=== PATIENT | female | born 1945 | race Caucasian/White ===

== ENCOUNTER 2019-03-07 20:53 | Inpatient (IN) | payer MEDICARE, OTHER ==
[2019-03-07 21:23] LABS: ADD MAN DIFF? NO
[2019-03-07] MEDS: ALBUTEROL 0.5% (NEB) 2.5 MG/0.5 ML AMP INH (21:25)
[2019-03-07] MEDS: IPRATROPIUM (NEB) 0.5 MG/2.5 ML AMP INH (21:25)
[2019-03-07 21:28] LABS: WHITE BLOOD COUNT 9.9 10^3/ul (4.8-10.8)
[2019-03-07 21:28] LABS: BASOPHIL # 0.1 10^3/ul (0.0-0.1); BASOPHILS % 0.6 % (0.0-2.0); EOSINOPHILS # 0.1 10^3/ul (0.0-0.5); EOSINOPHILS % 0.5 % (0.0-7.0); HEMATOCRIT 36.6 % (37.0-47.0); HEMOGLOBIN 11.1 g/dl (12.0-16.0); LYMPHOCYTES # 0.9 10^3/ul (0.8-2.9); LYMPHOCYTES % 9.1 % (15.0-51.0); MEAN CORPUSCULAR HEMOGLOBIN 24.6 pg (29.0-33.0); MEAN CORPUSCULAR HGB CONC 30.3 g/dl (32.0-37.0); MEAN CORPUSCULAR VOLUME 81.2 fl (82.0-101.0); MEAN PLATELET VOLUME 10.2 fl (7.4-10.4); MONOCYTE # 0.6 10^3/ul (0.3-0.9); MONOCYTES % 5.9 % (0.0-11.0); NEUTROPHIL # 8.2 10^3/ul (1.6-7.5); NEUTROPHILS % 83.4 % (39.0-77.0); PLATELET COUNT 119 10^3/UL (140-415); RED BLOOD COUNT 4.51 10^6/ul (4.20-5.40); RED CELL DISTRIBUTION WIDTH 17.6 % (11.5-14.5)
[2019-03-07] MEDS: CEFEPIME 2GM/50 ML (PMX) 50 ML IVPB (21:31)
[2019-03-07] MEDS: ACETAMINOPHEN 325 MG TAB PO (21:31)
[2019-03-07 21:47] LABS: INR 1.08; PROTIME 14.1 Sec (11.9-14.9); PT RATIO 1.1
[2019-03-07 21:48] LABS: PARTIAL THROMBOPLASTIN TIME 26.5 Sec (23.0-35.0)
[2019-03-07 21:59] LABS: LACTIC ACID 2.6 mmol/L (0.5-2.0)
[2019-03-07 22:08] LABS: ALANINE AMINOTRANSFERASE 18 IU/L (13-69); ALBUMIN 3.4 g/dl (3.3-4.9); ALBUMIN/GLOBULIN RATIO 1.36; ALKALINE PHOSPHATASE 100 IU/L (42-121); ANION GAP 9 (5-13); ASPARTATE AMINO TRANSFERASE 25 IU/L (15-46); BILIRUBIN,INDIRECT 0.8 mg/dl (0-1.1); BILIRUBIN,TOTAL 0.8 mg/dl (0.2-1.3); BLOOD UREA NITROGEN 39 mg/dl (7-20); CALCIUM 8.1 mg/dl (8.4-10.2); CARBON DIOXIDE 24 mmol/L (21-31); CHLORIDE 103 mmol/L (97-110); CREATININE 1.05 mg/dl (0.44-1.00); GLUCOSE 114 mg/dl (70-220); POTASSIUM 4.9 mmol/L (3.5-5.1); SODIUM 136 mmol/L (135-144); TOTAL PROTEIN 5.9 g/dl (6.1-8.1)
[2019-03-07 22:20] LABS: B-TYPE NATRIURETIC PEPTIDE 1790 PG/ML (0-450); TROPONIN-I < 0.012 ng/ml (0.000-0.120)
[2019-03-07] MEDS: VANCOMYCIN 1 GM (PMX) 250 ML IVPB (22:36)
[2019-03-07] MEDS ORDERED: ONDANSETRON 4 MG INJ IV (23:00)
[2019-03-07] MEDS ORDERED: ACETAMINOPHEN 325 MG TAB PO (23:00)
[2019-03-07] MEDS: SOD CHLORIDE 0.9% 1,000 ML IV (23:10)
[2019-03-07] MEDS ORDERED: NITROGLYCERIN (SL) 0.4 MG TAB SL (23:30)
[2019-03-07] MEDS ORDERED: DOCUSATE SODIUM 100 MG CAP PO (23:30)
[2019-03-07] MEDS ORDERED: VANCOMYCIN IV PER PHARMACY XX (23:30)
[2019-03-07] MEDS ORDERED: BISACODYL (EC) 5 MG TAB PO (23:30)
[2019-03-07] MEDS ORDERED: NACL 0.9% 3 ML SYG IV (23:30)
[2019-03-07 23:52] LABS: LACTIC ACID 1.9 mmol/L (0.5-2.0)
[2019-03-08] MEDS: FUROSEMIDE 40 MG INJ IV (00:23)
[2019-03-08] MEDS: HYDROCODONE/APAP (5/325) TAB PO (00:24)
[2019-03-08] MEDS: HEPARIN 5,000 UNIT/1 ML VIAL SC ×4 (01:24→23:55)
[2019-03-08] MEDS: PIPER-TAZO 3.375 GM IV (PMX) 100 ML IVPB ×4 (01:25→18:56)
[2019-03-08 02:04] LABS: LACTIC ACID 1.9 mmol/L (0.5-2.0)
[2019-03-08] MEDS: BUMETANIDE 1 MG INJ IM (05:36)
[2019-03-08 06:43] LABS: ADD MAN DIFF? NO
[2019-03-08 06:44] LABS: WHITE BLOOD COUNT 8.2 10^3/ul (4.8-10.8)
[2019-03-08 06:44] LABS: ABNORMAL IP MESSAGE 1; BASOPHIL # 0.1 10^3/ul (0.0-0.1); BASOPHILS % 0.6 % (0.0-2.0); EOSINOPHILS % 0.4 % (0.0-7.0); HEMATOCRIT 33.1 % (37.0-47.0); HEMOGLOBIN 10.2 g/dl (12.0-16.0); LYMPHOCYTES # 0.6 10^3/ul (0.8-2.9); MEAN CORPUSCULAR HEMOGLOBIN 24.9 pg (29.0-33.0); MEAN CORPUSCULAR HGB CONC 30.8 g/dl (32.0-37.0); MEAN CORPUSCULAR VOLUME 80.9 fl (82.0-101.0); MEAN PLATELET VOLUME 10.6 fl (7.4-10.4); MONOCYTE # 0.4 10^3/ul (0.3-0.9); MONOCYTES % 4.5 % (0.0-11.0); NEUTROPHIL # 7.1 10^3/ul (1.6-7.5); NEUTROPHILS % 86.7 % (39.0-77.0); PLATELET COUNT 107 10^3/UL (140-415); RED BLOOD COUNT 4.09 10^6/ul (4.20-5.40); RED CELL DISTRIBUTION WIDTH 17.6 % (11.5-14.5)
[2019-03-08 06:45] LABS: POSITIVE DIFF @See below
[2019-03-08 07:18] LABS: ALANINE AMINOTRANSFERASE 19 IU/L (13-69); ALBUMIN 2.9 g/dl (3.3-4.9); ALBUMIN/GLOBULIN RATIO 1.31; ALKALINE PHOSPHATASE 78 IU/L (42-121); ANION GAP 6 (5-13); ASPARTATE AMINO TRANSFERASE 24 IU/L (15-46); BILIRUBIN,INDIRECT 0.7 mg/dl (0-1.1); BILIRUBIN,TOTAL 0.7 mg/dl (0.2-1.3); BLOOD UREA NITROGEN 37 mg/dl (7-20); CALCIUM 7.7 mg/dl (8.4-10.2); CARBON DIOXIDE 23 mmol/L (21-31); CHLORIDE 107 mmol/L (97-110); CREATININE 0.95 mg/dl (0.44-1.00); GLUCOSE 110 mg/dl (70-220); MAGNESIUM 2.1 mg/dl (1.7-2.5); POTASSIUM 4.7 mmol/L (3.5-5.1); SODIUM 136 mmol/L (135-144); TOTAL PROTEIN 5.1 g/dl (6.1-8.1)
[2019-03-08 07:20] LABS: HEMOGLOBIN A1C 5.5 % (0-5.9)
[2019-03-08] MEDS: ALLOPURINOL 300 MG TAB PO (08:57)
[2019-03-08 10:48] LABS: FOLATE 10.3 ng/ml (2.8-20.0)
[2019-03-08] MEDS: LIDOCAINE 1% (MPF) 5 ML VIAL ×2 (12:28→13:11)
[2019-03-08] MEDS: BUMETANIDE 1 MG INJ IV ×2 (13:39→18:56)
[2019-03-08 17:39] LABS: ADD UMIC NO; UR ASCORBIC ACID NEGATIVE (NEGATIVE); UR BILIRUBIN (Dip) NEGATIVE (NEGATIVE); UR BLOOD (Dip) NEGATIVE (NEGATIVE); UR CLARITY SLIGHTLY CLOUDY (CLEAR); UR COLOR YELLOW (YELLOW); UR GLUCOSE (Dip) NEGATIVE (NEGATIVE); UR KETONES (Dip) NEGATIVE (NEGATIVE); UR LEUKOCYTE ESTERASE (Dip) NEGATIVE Leu/ul (NEGATIVE); UR NITRITE (Dip) NEGATIVE (NEGATIVE); UR RBC 0 /HPF (0-5); UR SPECIFIC GRAVITY (Dip) 1.011 (1.003-1.030); UR TOTAL PROTEIN (Dip) NEGATIVE (NEGATIVE); UR UROBILINOGEN (Dip) NEGATIVE (NEGATIVE); UR WBC 5 /HPF (0-5)
[2019-03-08 18:21] LABS: FLD PMN% 41.1 %; FLD RBC 8000 /uL
[2019-03-08 18:26] LABS: FLD PMN% 14.9 %; FLD RBC 12000 /uL
[2019-03-08 18:39] LABS: TRIGLYCERIDES 53 mg/dl (0-149)
[2019-03-08 18:39] LABS: ALBUMIN 2.1 g/dl (3.3-4.9)
[2019-03-08 18:42] LABS: FLUID GLUCOSE < 20 mg/dl; FLUID TYPE THORACENTESIS FLUID
[2019-03-08 18:43] LABS: FLD CLARITY TURBID; FLD COLOR YELLOW; FLD WBC 27687 /cmm
[2019-03-08 18:43] LABS: FLD TYPE THORACENTHESIS
[2019-03-08 18:45] LABS: FLD MN% 58.9 %
[2019-03-08 18:45] LABS: ALBUMIN 1.9 g/dl (3.3-4.9)
[2019-03-08 18:46] LABS: FLD CLARITY TURBID; FLD COLOR YELLOW; FLD WBC 42475 /cmm
[2019-03-08 18:46] LABS: FLD TYPE PARACENTHESIS
[2019-03-08 18:48] LABS: FLD MN% 85.1 %
[2019-03-08 18:50] LABS: FLUID GLUCOSE < 20 mg/dl; FLUID TYPE PARACENTESIS FLUID
[2019-03-08 18:51] LABS: FLUID TOTAL PROTEIN 3.3 g/dl; FLUID TOTAL PROTEIN 3.7 g/dl; FLUID TYPE PARACENTESIS FLUID
[2019-03-08 18:52] LABS: FLUID LD 3701 U/L
[2019-03-08 19:01] LABS: FLUID LD 6175 U/L
[2019-03-08] MEDS: VANCOMYCIN 1 GM 250 ML IVPB (22:42)
[2019-03-09] MEDS: PIPER-TAZO 3.375 GM IV (PMX) 100 ML IVPB ×4 (00:33→17:53)
[2019-03-09 06:10] LABS: ADD MAN DIFF? NO
[2019-03-09 06:22] LABS: ABNORMAL IP MESSAGE 1; BASOPHILS % 0.4 % (0.0-2.0); EOSINOPHILS # 0.1 10^3/ul (0.0-0.5); EOSINOPHILS % 0.6 % (0.0-7.0); HEMATOCRIT 31.9 % (37.0-47.0); HEMOGLOBIN 9.7 g/dl (12.0-16.0); LYMPHOCYTES # 0.7 10^3/ul (0.8-2.9); LYMPHOCYTES % 8.9 % (15.0-51.0); MEAN CORPUSCULAR HEMOGLOBIN 24.6 pg (29.0-33.0); MEAN CORPUSCULAR HGB CONC 30.4 g/dl (32.0-37.0); MEAN CORPUSCULAR VOLUME 80.8 fl (82.0-101.0); MEAN PLATELET VOLUME 11.4 fl (7.4-10.4); MONOCYTE # 0.4 10^3/ul (0.3-0.9); MONOCYTES % 4.9 % (0.0-11.0); NEUTROPHIL # 6.8 10^3/ul (1.6-7.5); NEUTROPHILS % 84.6 % (39.0-77.0); PLATELET COUNT 96 10^3/UL (140-415); RED BLOOD COUNT 3.95 10^6/ul (4.20-5.40); RED CELL DISTRIBUTION WIDTH 17.7 % (11.5-14.5)
[2019-03-09 06:27] LABS: POSITIVE DIFF @See below
[2019-03-09] MEDS: HEPARIN 5,000 UNIT/1 ML VIAL SC ×3 (06:28→23:26)
[2019-03-09 06:51] LABS: ALANINE AMINOTRANSFERASE 19 IU/L (13-69); ALBUMIN 2.5 g/dl (3.3-4.9); ALBUMIN/GLOBULIN RATIO 1.13; ALKALINE PHOSPHATASE 71 IU/L (42-121); ANION GAP 6 (5-13); ASPARTATE AMINO TRANSFERASE 24 IU/L (15-46); BILIRUBIN,INDIRECT 0.7 mg/dl (0-1.1); BILIRUBIN,TOTAL 0.7 mg/dl (0.2-1.3); BLOOD UREA NITROGEN 33 mg/dl (7-20); CARBON DIOXIDE 23 mmol/L (21-31); CHLORIDE 109 mmol/L (97-110); CREATININE 1.03 mg/dl (0.44-1.00); GLUCOSE 100 mg/dl (70-220); POTASSIUM 3.9 mmol/L (3.5-5.1); SODIUM 138 mmol/L (135-144); TOTAL PROTEIN 4.7 g/dl (6.1-8.1)
[2019-03-09] MEDS: ALLOPURINOL 300 MG TAB PO (09:05)
[2019-03-09] MEDS: CYANOCOBALAMIN 1000 MCG INJ IM (12:44)
[2019-03-09] MEDS: VANCOMYCIN 1 GM 250 ML IVPB (23:14)
[2019-03-10] MEDS: PIPER-TAZO 3.375 GM IV (PMX) 100 ML IVPB ×4 (02:03→17:57)
[2019-03-10 06:53] LABS: ABNORMAL IP MESSAGE 1; ADD MAN DIFF? NO; BASOPHILS % 0.3 % (0.0-2.0); EOSINOPHILS # 0.1 10^3/ul (0.0-0.5); EOSINOPHILS % 1.3 % (0.0-7.0); HEMATOCRIT 33.9 % (37.0-47.0); HEMOGLOBIN 10.3 g/dl (12.0-16.0); LYMPHOCYTES % 12.9 % (15.0-51.0); MEAN CORPUSCULAR HEMOGLOBIN 24.4 pg (29.0-33.0); MEAN CORPUSCULAR HGB CONC 30.4 g/dl (32.0-37.0); MEAN CORPUSCULAR VOLUME 80.3 fl (82.0-101.0); MONOCYTE # 0.4 10^3/ul (0.3-0.9); MONOCYTES % 4.8 % (0.0-11.0); PLATELET COUNT 96 10^3/UL (140-415); RED BLOOD COUNT 4.22 10^6/ul (4.20-5.40); RED CELL DISTRIBUTION WIDTH 18.2 % (11.5-14.5)
[2019-03-10 06:53] LABS: WHITE BLOOD COUNT 7.5 10^3/ul (4.8-10.8)
[2019-03-10 06:54] LABS: POSITIVE DIFF @See below
[2019-03-10] MEDS: HEPARIN 5,000 UNIT/1 ML VIAL SC ×2 (06:55→21:35)
[2019-03-10 07:21] LABS: ALANINE AMINOTRANSFERASE 20 IU/L (13-69); ALBUMIN 2.7 g/dl (3.3-4.9); ALBUMIN/GLOBULIN RATIO 1.28; ALKALINE PHOSPHATASE 77 IU/L (42-121); ANION GAP 6 (5-13); ASPARTATE AMINO TRANSFERASE 26 IU/L (15-46); BILIRUBIN,INDIRECT 0.7 mg/dl (0-1.1); BILIRUBIN,TOTAL 0.7 mg/dl (0.2-1.3); BLOOD UREA NITROGEN 31 mg/dl (7-20); CALCIUM 7.4 mg/dl (8.4-10.2); CARBON DIOXIDE 23 mmol/L (21-31); CHLORIDE 108 mmol/L (97-110); CREATININE 1.06 mg/dl (0.44-1.00); GLUCOSE 102 mg/dl (70-220); POTASSIUM 3.8 mmol/L (3.5-5.1); SODIUM 137 mmol/L (135-144); TOTAL PROTEIN 4.8 g/dl (6.1-8.1)
[2019-03-10] MEDS: ALLOPURINOL 300 MG TAB PO (08:32)
[2019-03-10] MEDS: CYANOCOBALAMIN 1000 MCG INJ IM (08:32)
[2019-03-10 10:18] LABS: IRON 34 ug/dl (35-150)
[2019-03-10 10:28] LABS: % IRON SATURATION 15 % SAT (22-52); TOTAL IRON BINDING CAPACITY 221 ug/dl (241-421)
[2019-03-10] MEDS: FUROSEMIDE 40 MG TAB PO (12:01)
[2019-03-10] MEDS: SPIRONOLACTONE 50 MG TAB PO (12:02)
[2019-03-10] MEDS: ACETAMINOPHEN 325 MG TAB PO (20:45)
[2019-03-11] MEDS: PIPER-TAZO 3.375 GM IV (PMX) 100 ML IVPB ×2 (00:39→05:21)
[2019-03-11 08:57] LABS: ADD MAN DIFF? NO
[2019-03-11] MEDS: SPIRONOLACTONE 50 MG TAB PO (09:05)
[2019-03-11 09:06] LABS: WHITE BLOOD COUNT 7.7 10^3/ul (4.8-10.8)
[2019-03-11 09:06] LABS: BASOPHILS % 0.5 % (0.0-2.0); EOSINOPHILS # 0.1 10^3/ul (0.0-0.5); EOSINOPHILS % 1.4 % (0.0-7.0); HEMATOCRIT 35.4 % (37.0-47.0); HEMOGLOBIN 10.7 g/dl (12.0-16.0); LYMPHOCYTES # 0.9 10^3/ul (0.8-2.9); LYMPHOCYTES % 11.1 % (15.0-51.0); MEAN CORPUSCULAR HEMOGLOBIN 24.7 pg (29.0-33.0); MEAN CORPUSCULAR HGB CONC 30.2 g/dl (32.0-37.0); MEAN CORPUSCULAR VOLUME 81.6 fl (82.0-101.0); MEAN PLATELET VOLUME 11.1 fl (7.4-10.4); MONOCYTE # 0.3 10^3/ul (0.3-0.9); MONOCYTES % 4.1 % (0.0-11.0); NEUTROPHIL # 6.4 10^3/ul (1.6-7.5); NEUTROPHILS % 82.4 % (39.0-77.0); PLATELET COUNT 111 10^3/UL (140-415); RED BLOOD COUNT 4.34 10^6/ul (4.20-5.40)
[2019-03-11] MEDS: ALLOPURINOL 300 MG TAB PO (09:06)
[2019-03-11] MEDS: FUROSEMIDE 40 MG TAB PO (09:06)
[2019-03-11] MEDS: CYANOCOBALAMIN 1000 MCG INJ IM (09:06)
[2019-03-11] MEDS: HEPARIN 5,000 UNIT/1 ML VIAL SC ×2 (09:09→20:51)
[2019-03-11] MEDS: ACETAMINOPHEN 325 MG TAB PO (09:10)
[2019-03-11 09:26] LABS: ALANINE AMINOTRANSFERASE 21 IU/L (13-69); ALBUMIN 2.7 g/dl (3.3-4.9); ALBUMIN/GLOBULIN RATIO 1.17; ALKALINE PHOSPHATASE 83 IU/L (42-121); ANION GAP 8 (5-13); ASPARTATE AMINO TRANSFERASE 28 IU/L (15-46); BILIRUBIN,INDIRECT 0.7 mg/dl (0-1.1); BILIRUBIN,TOTAL 0.7 mg/dl (0.2-1.3); BLOOD UREA NITROGEN 31 mg/dl (7-20); CALCIUM 7.5 mg/dl (8.4-10.2); CARBON DIOXIDE 26 mmol/L (21-31); CHLORIDE 104 mmol/L (97-110); CREATININE 1.09 mg/dl (0.44-1.00); GLUCOSE 110 mg/dl (70-220); POTASSIUM 4.2 mmol/L (3.5-5.1); SODIUM 138 mmol/L (135-144)
[2019-03-11] MEDS: FERROUS SULFATE (EC) 325 MG TAB PO (13:29)
[2019-03-11] MEDS: HYDROCODONE/APAP (5/325) TAB PO (17:41)
[2019-03-11] MEDS: ONDANSETRON 4 MG INJ IV (17:41)
[2019-03-12 06:54] LABS: WHITE BLOOD COUNT 7.8 10^3/ul (4.8-10.8)
[2019-03-12 06:54] LABS: HEMATOCRIT 34.2 % (37.0-47.0); HEMOGLOBIN 10.3 g/dl (12.0-16.0); MEAN CORPUSCULAR HEMOGLOBIN 24.7 pg (29.0-33.0); MEAN CORPUSCULAR HGB CONC 30.1 g/dl (32.0-37.0); MEAN PLATELET VOLUME 11.4 fl (7.4-10.4); PLATELET COUNT 114 10^3/UL (140-415); RED BLOOD COUNT 4.17 10^6/ul (4.20-5.40); RED CELL DISTRIBUTION WIDTH 18.3 % (11.5-14.5)
[2019-03-12 07:01] LABS: ADD MAN DIFF? YES; POSITIVE DIFF @See below
[2019-03-12 07:20] LABS: ANION GAP 9 (5-13); BLOOD UREA NITROGEN 33 mg/dl (7-20); CALCIUM 7.9 mg/dl (8.4-10.2); CARBON DIOXIDE 24 mmol/L (21-31); CHLORIDE 105 mmol/L (97-110); CREATININE 1.31 mg/dl (0.44-1.00); GLUCOSE 90 mg/dl (70-220); MAGNESIUM 1.8 mg/dl (1.7-2.5); POTASSIUM 4.1 mmol/L (3.5-5.1); SODIUM 138 mmol/L (135-144)
[2019-03-12 07:34] LABS: LACTATE DEHYDROGENASE 2808 IU/L (313-618)
[2019-03-12 08:06] LABS: ERYTHROCYTE SEDIMENTATION RATE 6 mm/Hr (0-30)
[2019-03-12 08:26] LABS: ANISOCYTOSIS 2+ (0-0); BAND NEUTROPHILS #M 0.1 10^3/ul (0.0-0.6); BAND NEUTROPHILS % (M) 2 % (0-4); BASOPHILS % (M) 1 % (0-2); EOSINOPHILS % (M) 1 % (0-7); GIANT THROMBO% (M) 3 % (0-0); LYMPHOCYTES #M 0.3 10^3/ul (0.8-2.9); LYMPHOCYTES % (M) 5 % (15-51); MICROCYTOSIS 2+ (0-0); MONOCYTE #M 0.3 10^3/ul (0.3-0.9); MONOCYTES % (M) 4 % (0-11); PLATELET ESTIMATE DECREASED; SEG NEUT #M 6.8 10^3/ul (1.6-7.5); SEGMENTED NEUTROPHILS (M) % 87 % (39-77); SMUDGE%M 8 % (0-0)
[2019-03-12] MEDS: FUROSEMIDE 40 MG TAB PO (09:00)
[2019-03-12] MEDS: SPIRONOLACTONE 50 MG TAB PO (09:48)
[2019-03-12] MEDS: FERROUS SULFATE (EC) 325 MG TAB PO (09:48)
[2019-03-12] MEDS: ALLOPURINOL 300 MG TAB PO (09:48)
[2019-03-12] MEDS: CYANOCOBALAMIN 1000 MCG INJ IM (09:49)
[2019-03-12] MEDS: HEPARIN 5,000 UNIT/1 ML VIAL SC ×2 (09:57→21:46)
[2019-03-12 19:52] LABS: NIL 0.21 IU/mL; QUANTIFERON(R)-TB GOLD NEGATIVE (NEGATIVE); TB-NIL <0.00 IU/mL; TB2-NIL <0.00 IU/mL
[2019-03-13 06:54] LABS: ANION GAP 9 (5-13); BLOOD UREA NITROGEN 37 mg/dl (7-20); CALCIUM 7.7 mg/dl (8.4-10.2); CARBON DIOXIDE 20 mmol/L (21-31); CHLORIDE 106 mmol/L (97-110); CREATININE 1.48 mg/dl (0.44-1.00); GLUCOSE 99 mg/dl (70-220); POTASSIUM 4.4 mmol/L (3.5-5.1); SODIUM 135 mmol/L (135-144)
[2019-03-13 07:04] LABS: MAGNESIUM 1.9 mg/dl (1.7-2.5)
[2019-03-13 07:04] LABS: PHOSPHORUS 2.6 mg/dl (2.5-4.9)
[2019-03-13 07:07] LABS: ADD UMIC YES; UR ASCORBIC ACID NEGATIVE (NEGATIVE); UR BILIRUBIN (Dip) NEGATIVE (NEGATIVE); UR BLOOD (Dip) NEGATIVE (NEGATIVE); UR CLARITY CLOUDY (CLEAR); UR COLOR AMBER (YELLOW); UR GLUCOSE (Dip) NEGATIVE (NEGATIVE); UR GRANULAR CAST FEW /HPF (NONE SEEN); UR KETONES (Dip) TRACE mg/dL (NEGATIVE); UR LEUKOCYTE ESTERASE (Dip) NEGATIVE Leu/ul (NEGATIVE); UR MUCUS FEW /HPF (NONE SEEN); UR NITRITE (Dip) NEGATIVE (NEGATIVE); UR RBC 1 /HPF (0-5); UR SPECIFIC GRAVITY (Dip) 1.024 (1.003-1.030); UR SQUAMOUS EPITHELIAL CELL FEW /HPF (FEW); UR TOTAL PROTEIN (Dip) 1+ mg/dl (NEGATIVE); UR UROBILINOGEN (Dip) NEGATIVE (NEGATIVE); UR WBC 7 /HPF (0-5)
[2019-03-13 07:51] LABS: CREATININE,URINE RANDOM 284.76 mg/dl (20-320)
[2019-03-13 07:59] LABS: SODIUM,URINE RANDOM < 13 mmol/L (30-90)
[2019-03-13] MEDS: HEPARIN 5,000 UNIT/1 ML VIAL SC (09:00)
[2019-03-13] MEDS: FERROUS SULFATE (EC) 325 MG TAB PO (09:14)
[2019-03-13] MEDS: CYANOCOBALAMIN 1000 MCG INJ IM (09:14)
[2019-03-13] MEDS: SPIRONOLACTONE 50 MG TAB PO (09:14)
[2019-03-13] MEDS: ALLOPURINOL 300 MG TAB PO (09:14)
[2019-03-13] MEDS: SOD CHLORIDE 0.9% 1,000 ML IV (11:54)
[2019-03-13] MEDS ORDERED: LIDOCAINE 1% (MDV) 20 ML INJ (14:21)
[2019-03-13] MEDS ORDERED: SOD CHLORIDE 0.9% 500 ML (14:29)
[2019-03-13] MEDS ORDERED: MIDAZOLAM 1 MG/ML 2 ML INJ ×2 (14:30→14:57)
[2019-03-13] MEDS ORDERED: FENTAnyl 50 MCG/ML VIAL (14:30)
[2019-03-14 06:51] LABS: ADD MAN DIFF? NO
[2019-03-14 06:56] LABS: WHITE BLOOD COUNT 6.8 10^3/ul (4.8-10.8)
[2019-03-14 06:56] LABS: BASOPHILS % 0.3 % (0.0-2.0); EOSINOPHILS # 0.1 10^3/ul (0.0-0.5); EOSINOPHILS % 0.7 % (0.0-7.0); HEMATOCRIT 32.3 % (37.0-47.0); HEMOGLOBIN 9.9 g/dl (12.0-16.0); LYMPHOCYTES # 1.2 10^3/ul (0.8-2.9); LYMPHOCYTES % 17.5 % (15.0-51.0); MEAN CORPUSCULAR HEMOGLOBIN 24.6 pg (29.0-33.0); MEAN CORPUSCULAR HGB CONC 30.7 g/dl (32.0-37.0); MEAN CORPUSCULAR VOLUME 80.1 fl (82.0-101.0); MEAN PLATELET VOLUME 10.9 fl (7.4-10.4); MONOCYTE # 0.5 10^3/ul (0.3-0.9); MONOCYTES % 6.6 % (0.0-11.0); NEUTROPHILS % 74.2 % (39.0-77.0); PLATELET COUNT 154 10^3/UL (140-415); RED BLOOD COUNT 4.03 10^6/ul (4.20-5.40); RED CELL DISTRIBUTION WIDTH 18.7 % (11.5-14.5)
[2019-03-14 07:22] LABS: ANION GAP 9 (5-13); BLOOD UREA NITROGEN 41 mg/dl (7-20); CALCIUM 8.1 mg/dl (8.4-10.2); CARBON DIOXIDE 18 mmol/L (21-31); CHLORIDE 109 mmol/L (97-110); GLUCOSE 121 mg/dl (70-220); PHOSPHORUS 2.6 mg/dl (2.5-4.9); POTASSIUM 4.6 mmol/L (3.5-5.1); SODIUM 136 mmol/L (135-144)
[2019-03-14] MEDS: SPIRONOLACTONE 50 MG TAB PO (09:00)
[2019-03-14] MEDS: SOD CHLORIDE 0.9% 1,000 ML IV (09:05)
[2019-03-14] MEDS: FERROUS SULFATE (EC) 325 MG TAB PO (09:06)
[2019-03-14] MEDS: ALLOPURINOL 300 MG TAB PO (09:06)
[2019-03-14] MEDS: CYANOCOBALAMIN 1000 MCG INJ IM (09:06)
[2019-03-14 15:18] LABS: CREATININE, RANDOM URINE 251 mg/dL (20-275); MICROALBUMIN/CREATININE RATIO 16 (<30)
[2019-03-14 18:34] LABS: URIC ACID 6.1 mg/dl (3.1-7.9)
[2019-03-15 06:11] LABS: ADD MAN DIFF? NO
[2019-03-15 06:18] LABS: BASOPHILS % 0.3 % (0.0-2.0); EOSINOPHILS # 0.1 10^3/ul (0.0-0.5); EOSINOPHILS % 1.4 % (0.0-7.0); HEMATOCRIT 32.1 % (37.0-47.0); HEMOGLOBIN 9.8 g/dl (12.0-16.0); LYMPHOCYTES # 1.2 10^3/ul (0.8-2.9); MEAN CORPUSCULAR HEMOGLOBIN 24.6 pg (29.0-33.0); MEAN CORPUSCULAR HGB CONC 30.5 g/dl (32.0-37.0); MEAN CORPUSCULAR VOLUME 80.7 fl (82.0-101.0); MEAN PLATELET VOLUME 11.2 fl (7.4-10.4); MONOCYTE # 0.6 10^3/ul (0.3-0.9); MONOCYTES % 8.5 % (0.0-11.0); NEUTROPHILS % 71.9 % (39.0-77.0); PLATELET COUNT 166 10^3/UL (140-415); RED BLOOD COUNT 3.98 10^6/ul (4.20-5.40); RED CELL DISTRIBUTION WIDTH 19.2 % (11.5-14.5)
[2019-03-15 06:47] LABS: ANION GAP 12 (5-13); BLOOD UREA NITROGEN 45 mg/dl (7-20); CALCIUM 8.3 mg/dl (8.4-10.2); CARBON DIOXIDE 18 mmol/L (21-31); CHLORIDE 107 mmol/L (97-110); CREATININE 1.98 mg/dl (0.44-1.00); GLUCOSE 99 mg/dl (70-220); PHOSPHORUS 2.5 mg/dl (2.5-4.9); SODIUM 137 mmol/L (135-144)
[2019-03-15] MEDS: SPIRONOLACTONE 25 MG TAB PO (09:00)
[2019-03-15] MEDS: CYANOCOBALAMIN 1000 MCG INJ IM (09:39)
[2019-03-15] MEDS: FERROUS SULFATE (EC) 325 MG TAB PO (09:39)
[2019-03-15] MEDS: ALLOPURINOL 300 MG TAB PO (09:39)
[2019-03-15 12:13] LABS: ALANINE AMINOTRANSFERASE 17 IU/L (13-69); ALBUMIN 2.6 g/dl (3.3-4.9); ALBUMIN/GLOBULIN RATIO 1.18; ALKALINE PHOSPHATASE 76 IU/L (42-121); ANION GAP 8 (5-13); ASPARTATE AMINO TRANSFERASE 25 IU/L (15-46); BILIRUBIN,INDIRECT 0.4 mg/dl (0-1.1); BILIRUBIN,TOTAL 0.4 mg/dl (0.2-1.3); BLOOD UREA NITROGEN 46 mg/dl (7-20); CARBON DIOXIDE 19 mmol/L (21-31); CHLORIDE 106 mmol/L (97-110); CREATININE 1.92 mg/dl (0.44-1.00); GLUCOSE 87 mg/dl (70-220); POTASSIUM 5.2 mmol/L (3.5-5.1); SODIUM 133 mmol/L (135-144); TOTAL PROTEIN 4.8 g/dl (6.1-8.1)
[2019-03-15] MEDS: SOD CHLORIDE 0.9% 1,000 ML IV (12:16)
[2019-03-15 17:55] LABS: ADD UMIC YES; UR AMORPHOUS CRYSTAL MANY /HPF (NONE SEEN); UR ASCORBIC ACID NEGATIVE (NEGATIVE); UR BACTERIA FEW /HPF (NONE SEEN); UR BILIRUBIN (Dip) NEGATIVE (NEGATIVE); UR BLOOD (Dip) NEGATIVE (NEGATIVE); UR CLARITY TURBID (CLEAR); UR COLOR AMBER (YELLOW); UR GLUCOSE (Dip) NEGATIVE (NEGATIVE); UR HYALINE CAST FEW /HPF (NONE SEEN); UR KETONES (Dip) TRACE mg/dL (NEGATIVE); UR LEUKOCYTE ESTERASE (Dip) NEGATIVE Leu/ul (NEGATIVE); UR MUCUS FEW /HPF (NONE SEEN); UR NITRITE (Dip) NEGATIVE (NEGATIVE); UR RBC 4 /HPF (0-5); UR SPECIFIC GRAVITY (Dip) 1.021 (1.003-1.030); UR TOTAL PROTEIN (Dip) 1+ mg/dl (NEGATIVE); UR UROBILINOGEN (Dip) NEGATIVE (NEGATIVE); UR WBC 27 /HPF (0-5)
[2019-03-15 18:28] LABS: SODIUM,URINE RANDOM < 13 mmol/L (30-90)
[2019-03-15] MEDS: DOCUSATE SODIUM 100 MG CAP PO (20:18)
[2019-03-16 06:18] LABS: ADD MAN DIFF? NO
[2019-03-16 06:24] LABS: BASOPHILS % 0.5 % (0.0-2.0); EOSINOPHILS # 0.2 10^3/ul (0.0-0.5); HEMATOCRIT 33.4 % (37.0-47.0); HEMOGLOBIN 10.1 g/dl (12.0-16.0); LYMPHOCYTES # 1.2 10^3/ul (0.8-2.9); LYMPHOCYTES % 15.9 % (15.0-51.0); MEAN CORPUSCULAR HEMOGLOBIN 24.7 pg (29.0-33.0); MEAN CORPUSCULAR HGB CONC 30.2 g/dl (32.0-37.0); MEAN CORPUSCULAR VOLUME 81.7 fl (82.0-101.0); MEAN PLATELET VOLUME 10.8 fl (7.4-10.4); MONOCYTE # 0.8 10^3/ul (0.3-0.9); MONOCYTES % 10.1 % (0.0-11.0); NEUTROPHIL # 5.3 10^3/ul (1.6-7.5); NEUTROPHILS % 70.7 % (39.0-77.0); PLATELET COUNT 183 10^3/UL (140-415); RED BLOOD COUNT 4.09 10^6/ul (4.20-5.40); RED CELL DISTRIBUTION WIDTH 19.5 % (11.5-14.5)
[2019-03-16 06:24] LABS: WHITE BLOOD COUNT 7.5 10^3/ul (4.8-10.8)
[2019-03-16 06:55] LABS: ANION GAP 10 (5-13); BLOOD UREA NITROGEN 47 mg/dl (7-20); CALCIUM 8.3 mg/dl (8.4-10.2); CARBON DIOXIDE 18 mmol/L (21-31); CHLORIDE 107 mmol/L (97-110); CREATININE 2.12 mg/dl (0.44-1.00); GLUCOSE 88 mg/dl (70-220); SODIUM 135 mmol/L (135-144)
[2019-03-16] MEDS: SOD CHLORIDE 0.9% 1,000 ML IV (06:57)
[2019-03-16] MEDS: ALLOPURINOL 300 MG TAB PO (09:20)
[2019-03-16] MEDS: FERROUS SULFATE (EC) 325 MG TAB PO (09:20)
[2019-03-16] MEDS: CYANOCOBALAMIN 1000 MCG INJ IM (09:20)
[2019-03-16] MEDS: ENOXAPARIN 30 MG/0.3 ML SYG SC (09:27)
[2019-03-16] MEDS: ALBUMIN HUMAN 25% 100 ML IV ×2 (14:22→20:47)
[2019-03-16] MEDS: DOCUSATE SODIUM 100 MG CAP PO (20:30)
[2019-03-16] MEDS: ONDANSETRON 4 MG INJ IV (20:30)
[2019-03-17] MEDS: SOD CHLORIDE 0.9% 1,000 ML IV ×2 (02:54→09:26)
[2019-03-17] MEDS: ALBUMIN HUMAN 25% 100 ML IV ×2 (05:18→13:44)
[2019-03-17 06:07] LABS: ADD MAN DIFF? NO
[2019-03-17] MEDS: IPRATROPIUM (NEB) 0.5 MG/2.5 ML AMP HHN (06:09)
[2019-03-17] MEDS: LEVALBUTEROL (NEB) 1.25 MG/0.5 ML AMP HHN (06:09)
[2019-03-17 06:15] LABS: BASOPHILS % 0.6 % (0.0-2.0); EOSINOPHILS # 0.2 10^3/ul (0.0-0.5); EOSINOPHILS % 2.6 % (0.0-7.0); HEMATOCRIT 29.1 % (37.0-47.0); HEMOGLOBIN 8.9 g/dl (12.0-16.0); LYMPHOCYTES % 14.2 % (15.0-51.0); MEAN CORPUSCULAR HEMOGLOBIN 24.9 pg (29.0-33.0); MEAN CORPUSCULAR HGB CONC 30.6 g/dl (32.0-37.0); MEAN CORPUSCULAR VOLUME 81.3 fl (82.0-101.0); MEAN PLATELET VOLUME 10.5 fl (7.4-10.4); MONOCYTE # 0.7 10^3/ul (0.3-0.9); MONOCYTES % 10.2 % (0.0-11.0); NEUTROPHIL # 4.9 10^3/ul (1.6-7.5); NEUTROPHILS % 70.8 % (39.0-77.0); NUCLEATED RED BLOOD CELLS% 0.3 /100WBC (0.0-0.0); PLATELET COUNT 173 10^3/UL (140-415); RED BLOOD COUNT 3.58 10^6/ul (4.20-5.40); RED CELL DISTRIBUTION WIDTH 19.7 % (11.5-14.5)
[2019-03-17 06:45] LABS: ALANINE AMINOTRANSFERASE 16 IU/L (13-69); ALBUMIN 3.2 g/dl (3.3-4.9); ALBUMIN/GLOBULIN RATIO 1.77; ALKALINE PHOSPHATASE 64 IU/L (42-121); ANION GAP 14 (5-13); ASPARTATE AMINO TRANSFERASE 26 IU/L (15-46); BILIRUBIN,INDIRECT 0.6 mg/dl (0-1.1); BILIRUBIN,TOTAL 0.6 mg/dl (0.2-1.3); BLOOD UREA NITROGEN 51 mg/dl (7-20); CALCIUM 8.2 mg/dl (8.4-10.2); CARBON DIOXIDE 18 mmol/L (21-31); CHLORIDE 106 mmol/L (97-110); CREATININE 2.38 mg/dl (0.44-1.00); GLUCOSE 83 mg/dl (70-220); INR 1.24; MAGNESIUM 2.1 mg/dl (1.7-2.5); POTASSIUM 5.1 mmol/L (3.5-5.1); PROTIME 15.7 Sec (11.9-14.9); PT RATIO 1.2; SODIUM 138 mmol/L (135-144)
[2019-03-17 06:45] LABS: PHOSPHORUS 2.8 mg/dl (2.5-4.9)
[2019-03-17 07:12] LABS: URIC ACID 6.1 mg/dl (3.1-7.9)
[2019-03-17] MEDS: FERROUS SULFATE (EC) 325 MG TAB PO (08:20)
[2019-03-17] MEDS: ALLOPURINOL 300 MG TAB PO (08:20)
[2019-03-17] MEDS: ENOXAPARIN 30 MG/0.3 ML SYG SC (08:24)
[2019-03-17] MEDS: morphine 2 MG INJ IV (18:56)
[2019-03-17] MEDS: LACTOBACILLUS RHAMNOSUS CAP PO (20:47)
[2019-03-17] MEDS: DOCUSATE SODIUM 100 MG CAP PO (20:47)
[2019-03-17] MEDS: FAMOTIDINE 20 MG TAB PO (20:47)
[2019-03-18] MEDS: IPRATROPIUM (NEB) 0.5 MG/2.5 ML AMP HHN (01:40)
[2019-03-18] MEDS: LEVALBUTEROL (NEB) 1.25 MG/0.5 ML AMP HHN (01:40)
[2019-03-18 06:48] LABS: ADD MAN DIFF? NO
[2019-03-18 06:54] LABS: BASOPHIL # 0.1 10^3/ul (0.0-0.1); BASOPHILS % 0.8 % (0.0-2.0); EOSINOPHILS # 0.2 10^3/ul (0.0-0.5); HEMOGLOBIN 9.9 g/dl (12.0-16.0); LYMPHOCYTES # 0.9 10^3/ul (0.8-2.9); LYMPHOCYTES % 11.5 % (15.0-51.0); MEAN CORPUSCULAR HEMOGLOBIN 24.6 pg (29.0-33.0); MEAN CORPUSCULAR HGB CONC 30.9 g/dl (32.0-37.0); MEAN CORPUSCULAR VOLUME 79.4 fl (82.0-101.0); MEAN PLATELET VOLUME 10.6 fl (7.4-10.4); MONOCYTE # 0.7 10^3/ul (0.3-0.9); MONOCYTES % 9.3 % (0.0-11.0); NEUTROPHILS % 74.8 % (39.0-77.0); NUCLEATED RED BLOOD CELLS% 0.4 /100WBC (0.0-0.0); PLATELET COUNT 194 10^3/UL (140-415); RED BLOOD COUNT 4.03 10^6/ul (4.20-5.40); RED CELL DISTRIBUTION WIDTH 20.1 % (11.5-14.5)
[2019-03-18 07:17] LABS: ANION GAP 14 (5-13); BLOOD UREA NITROGEN 55 mg/dl (7-20); CALCIUM 8.3 mg/dl (8.4-10.2); CARBON DIOXIDE 15 mmol/L (21-31); CHLORIDE 107 mmol/L (97-110); CREATININE 2.82 mg/dl (0.44-1.00); GLUCOSE 80 mg/dl (70-220); PHOSPHORUS 2.6 mg/dl (2.5-4.9); POTASSIUM 5.9 mmol/L (3.5-5.1); SODIUM 136 mmol/L (135-144)
[2019-03-18] MEDS: SOD CHLORIDE 0.9% 1,000 ML IV (07:36)
[2019-03-18] MEDS: LACTOBACILLUS RHAMNOSUS CAP PO ×2 (08:18→20:02)
[2019-03-18] MEDS: FAMOTIDINE 20 MG TAB PO (08:18)
[2019-03-18] MEDS: FERROUS SULFATE (EC) 325 MG TAB PO (08:18)
[2019-03-18] MEDS: ALLOPURINOL 300 MG TAB PO (08:18)
[2019-03-18] MEDS: ENOXAPARIN 30 MG/0.3 ML SYG SC (08:21)
[2019-03-18] MEDS: SODIUM POLYSTYRENE 15 GM KIT (POWDER + SORBITOL) PO (08:49)
[2019-03-18 09:53] LABS: AADO2 Arterial 67.5 mmHg (7.0-24.0); Arterial Base Excess -12.9 mmol/L (-3.0-3); Arterial Blood Gas Oxygen Sat 97.6 mmHG (95.0-100.0); Arterial COHb 0.3 % (0.0-3.0); Arterial Fraction of Oxyhgb 96.9 % (93.0-99.0); Arterial HCO3 13.5 mmol/L (22.0-26.0); Arterial MetHb 0.4 % (0.0-1.5); MODE NASAL CANNULA; Site Right Brachial
[2019-03-18 10:26] LABS: ADD UMIC YES; UR ASCORBIC ACID NEGATIVE (NEGATIVE); UR BACTERIA FEW /HPF (NONE SEEN); UR BILIRUBIN (Dip) NEGATIVE (NEGATIVE); UR BLOOD (Dip) 1+ mg/dL (NEGATIVE); UR BUDDING YEAST MODERATE /HPF (NONE SEEN); UR CLARITY SLIGHTLY CLOUDY (CLEAR); UR COLOR AMBER (YELLOW); UR GLUCOSE (Dip) NEGATIVE (NEGATIVE); UR KETONES (Dip) TRACE mg/dL (NEGATIVE); UR LEUKOCYTE ESTERASE (Dip) NEGATIVE Leu/ul (NEGATIVE); UR NITRITE (Dip) NEGATIVE (NEGATIVE); UR RBC 1 /HPF (0-5); UR SPECIFIC GRAVITY (Dip) 1.023 (1.003-1.030); UR TOTAL PROTEIN (Dip) 1+ mg/dl (NEGATIVE); UR UROBILINOGEN (Dip) NEGATIVE (NEGATIVE); UR WBC 4 /HPF (0-5)
[2019-03-18 10:50] LABS: CREATININE,URINE RANDOM 260.45 mg/dl (20-320)
[2019-03-18 10:57] LABS: SODIUM,URINE RANDOM < 13 mmol/L (30-90)
[2019-03-18] MEDS ORDERED: SODIUM BICARBONATE (IV ADD) 150 MEQ in DEXTROSE 5% 850 ML IV (11:00)
[2019-03-18] MEDS: SODIUM BICARBONATE IN D5W 1,000 ML IV (11:05)
[2019-03-18 14:56] LABS: ANION GAP 12 (5-13); BLOOD UREA NITROGEN 56 mg/dl (7-20); CALCIUM 7.8 mg/dl (8.4-10.2); CARBON DIOXIDE 15 mmol/L (21-31); CHLORIDE 108 mmol/L (97-110); GLUCOSE 105 mg/dl (70-220); POTASSIUM 5.4 mmol/L (3.5-5.1); SODIUM 135 mmol/L (135-144)
[2019-03-18 15:08] LABS: CREATININE 2.88 mg/dl (0.44-1.00)
[2019-03-18] MEDS: DOCUSATE SODIUM 100 MG CAP PO (20:02)
[2019-03-19] MEDS: SODIUM BICARBONATE (IV ADD) 150 MEQ in DEXTROSE 5% 850 ML IV (00:11)
[2019-03-19] MEDS: LEVALBUTEROL (NEB) 1.25 MG/0.5 ML AMP HHN (01:55)
[2019-03-19] MEDS: IPRATROPIUM (NEB) 0.5 MG/2.5 ML AMP HHN (01:55)
[2019-03-19] MEDS ORDERED: PANTOPRAZOLE 40 MG INJ IV (02:30)
[2019-03-19] MEDS: FAMOTIDINE 20 MG INJ IV ×2 (03:03→09:14)
[2019-03-19] MEDS: AL HYDROX/MG HYDROX/SIMETH 30 ML CUP PO (03:03)
[2019-03-19] MEDS: FUROSEMIDE 20 MG INJ IV (03:03)
[2019-03-19] MEDS: METOCLOPRAMIDE 10 MG INJ IV (03:03)
[2019-03-19] MEDS: FERROUS SULFATE (EC) 325 MG TAB PO (09:13)
[2019-03-19] MEDS: LACTOBACILLUS RHAMNOSUS CAP PO ×2 (09:13→22:03)
[2019-03-19] MEDS: ALLOPURINOL 300 MG TAB PO (09:13)
[2019-03-19] MEDS: ENOXAPARIN 30 MG/0.3 ML SYG SC (09:14)
[2019-03-19] MEDS: FUROSEMIDE 40 MG INJ IV (09:49)
[2019-03-19 11:21] LABS: ANION GAP 17 (5-13); BLOOD UREA NITROGEN 60 mg/dl (7-20); CALCIUM 7.7 mg/dl (8.4-10.2); CARBON DIOXIDE 17 mmol/L (21-31); CHLORIDE 103 mmol/L (97-110); CREATININE 3.36 mg/dl (0.44-1.00); GLUCOSE 108 mg/dl (70-220); POTASSIUM 4.4 mmol/L (3.5-5.1); SODIUM 137 mmol/L (135-144)
[2019-03-19] MEDS: SODIUM BICARBONATE IN D5W 1,000 ML IV (13:17)
[2019-03-19 14:57] LABS: CREATININE, RANDOM URINE 231 mg/dL (20-275); MICROALBUMIN 3.6 mg/dL; MICROALBUMIN/CREATININE RATIO 16 (<30)
[2019-03-19] MEDS: morphine 2 MG INJ IV (15:07)
[2019-03-19] MEDS: DOCUSATE SODIUM 100 MG CAP PO (22:03)
[2019-03-20 06:50] LABS: ADD MAN DIFF? NO
[2019-03-20 06:56] LABS: BASOPHILS % 0.5 % (0.0-2.0); EOSINOPHILS # 0.2 10^3/ul (0.0-0.5); EOSINOPHILS % 1.8 % (0.0-7.0); HEMATOCRIT 30.4 % (37.0-47.0); HEMOGLOBIN 9.6 g/dl (12.0-16.0); LYMPHOCYTES # 0.8 10^3/ul (0.8-2.9); LYMPHOCYTES % 9.3 % (15.0-51.0); MEAN CORPUSCULAR HEMOGLOBIN 24.9 pg (29.0-33.0); MEAN CORPUSCULAR HGB CONC 31.6 g/dl (32.0-37.0); MEAN PLATELET VOLUME 10.9 fl (7.4-10.4); MONOCYTE # 0.9 10^3/ul (0.3-0.9); NEUTROPHIL # 6.7 10^3/ul (1.6-7.5); NEUTROPHILS % 76.8 % (39.0-77.0); NUCLEATED RED BLOOD CELLS% 0.5 /100WBC (0.0-0.0); PLATELET COUNT 172 10^3/UL (140-415); RED BLOOD COUNT 3.85 10^6/ul (4.20-5.40); RED CELL DISTRIBUTION WIDTH 20.8 % (11.5-14.5)
[2019-03-20 06:56] LABS: WHITE BLOOD COUNT 8.7 10^3/ul (4.8-10.8)
[2019-03-20 07:56] LABS: ANION GAP 16 (5-13); BLOOD UREA NITROGEN 65 mg/dl (7-20); CALCIUM 7.7 mg/dl (8.4-10.2); CARBON DIOXIDE 16 mmol/L (21-31); CHLORIDE 104 mmol/L (97-110); GLUCOSE 97 mg/dl (70-220); MAGNESIUM 2.1 mg/dl (1.7-2.5); PHOSPHORUS 3.3 mg/dl (2.5-4.9); POTASSIUM 4.6 mmol/L (3.5-5.1); SODIUM 136 mmol/L (135-144)
[2019-03-20 08:14] LABS: CREATININE 3.82 mg/dl (0.44-1.00)
[2019-03-20] MEDS: ALLOPURINOL 300 MG TAB PO (08:23)
[2019-03-20] MEDS: LACTOBACILLUS RHAMNOSUS CAP PO ×2 (08:23→20:36)
[2019-03-20] MEDS: FAMOTIDINE 20 MG INJ IV (08:23)
[2019-03-20] MEDS: FERROUS SULFATE (EC) 325 MG TAB PO (08:23)
[2019-03-20] MEDS: ENOXAPARIN 30 MG/0.3 ML SYG SC (08:24)
[2019-03-20] MEDS: morphine 2 MG INJ IV ×2 (08:48→22:42)
[2019-03-20] MEDS: FUROSEMIDE 40 MG INJ IV ×2 (09:48→21:15)
[2019-03-20] MEDS: ALBUMIN HUMAN 25% 50 ML IV ×2 (15:00→21:00)
[2019-03-20] MEDS: DOCUSATE SODIUM 100 MG CAP PO (20:36)
[2019-03-20] MEDS: CITRIC ACID/NA CITRATE 30 ML CUP PO (20:36)
[2019-03-21] MEDS: HYDROCODONE/APAP (10/325) TAB PO (02:17)
[2019-03-21] MEDS: ALBUMIN HUMAN 25% 50 ML IV ×2 (02:30→08:38)
[2019-03-21 07:22] LABS: ADD MAN DIFF? NO
[2019-03-21 07:25] LABS: BASOPHIL # 0.1 10^3/ul (0.0-0.1); BASOPHILS % 0.5 % (0.0-2.0); EOSINOPHILS # 0.1 10^3/ul (0.0-0.5); EOSINOPHILS % 0.9 % (0.0-7.0); HEMOGLOBIN 9.5 g/dl (12.0-16.0); LYMPHOCYTES # 0.7 10^3/ul (0.8-2.9); LYMPHOCYTES % 6.8 % (15.0-51.0); MEAN CORPUSCULAR HEMOGLOBIN 24.9 pg (29.0-33.0); MEAN CORPUSCULAR HGB CONC 31.7 g/dl (32.0-37.0); MEAN CORPUSCULAR VOLUME 78.7 fl (82.0-101.0); MEAN PLATELET VOLUME 10.7 fl (7.4-10.4); MONOCYTE # 0.9 10^3/ul (0.3-0.9); MONOCYTES % 8.7 % (0.0-11.0); NEUTROPHIL # 8.1 10^3/ul (1.6-7.5); NEUTROPHILS % 81.4 % (39.0-77.0); NUCLEATED RED BLOOD CELLS% 0.3 /100WBC (0.0-0.0); PLATELET COUNT 167 10^3/UL (140-415); RED BLOOD COUNT 3.81 10^6/ul (4.20-5.40); RED CELL DISTRIBUTION WIDTH 21.1 % (11.5-14.5)
[2019-03-21 07:46] LABS: ANION GAP 17 (5-13); BLOOD UREA NITROGEN 72 mg/dl (7-20); CARBON DIOXIDE 19 mmol/L (21-31); CHLORIDE 102 mmol/L (97-110); GLUCOSE 108 mg/dl (70-220); MAGNESIUM 2.2 mg/dl (1.7-2.5); PHOSPHORUS 4.7 mg/dl (2.5-4.9); SODIUM 138 mmol/L (135-144)
[2019-03-21 08:18] LABS: CREATININE 4.58 mg/dl (0.44-1.00); POTASSIUM 5.2 mmol/L (3.5-5.1)
[2019-03-21] MEDS: FERROUS SULFATE (EC) 325 MG TAB PO (08:37)
[2019-03-21] MEDS: LACTOBACILLUS RHAMNOSUS CAP PO ×2 (08:37→22:56)
[2019-03-21] MEDS: FAMOTIDINE 20 MG TAB PO (08:37)
[2019-03-21] MEDS: ALLOPURINOL 300 MG TAB PO (08:37)
[2019-03-21] MEDS: CITRIC ACID/NA CITRATE 30 ML CUP PO ×2 (08:37→22:56)
[2019-03-21] MEDS: ENOXAPARIN 30 MG/0.3 ML SYG SC (09:01)
[2019-03-21] MEDS: HEPARIN 1000 UNITS/ML 10 ML INJ CATHETER (22:49)
[2019-03-21 22:54] LABS: HEPATITIS B SURFACE ANTIGEN NEGATIVE (NEGATIVE)
[2019-03-21] MEDS: DOCUSATE SODIUM 100 MG CAP PO (22:56)
[2019-03-22 00:09] LABS: HEPATITIS B SURFACE ANTIBODY NEGATIVE (NEGATIVE)
[2019-03-22 08:24] LABS: ADD MAN DIFF? NO
[2019-03-22 08:41] LABS: ABNORMAL IP MESSAGE 1; BASOPHILS % 0.3 % (0.0-2.0); EOSINOPHILS % 0.3 % (0.0-7.0); HEMOGLOBIN 8.8 g/dl (12.0-16.0); LYMPHOCYTES # 0.5 10^3/ul (0.8-2.9); LYMPHOCYTES % 4.9 % (15.0-51.0); MEAN CORPUSCULAR HEMOGLOBIN 25.1 pg (29.0-33.0); MEAN CORPUSCULAR HGB CONC 31.4 g/dl (32.0-37.0); MEAN PLATELET VOLUME 10.9 fl (7.4-10.4); MONOCYTE # 0.6 10^3/ul (0.3-0.9); MONOCYTES % 6.4 % (0.0-11.0); NEUTROPHIL # 8.1 10^3/ul (1.6-7.5); NEUTROPHILS % 86.6 % (39.0-77.0); NUCLEATED RED BLOOD CELLS% 0.2 /100WBC (0.0-0.0); PLATELET COUNT 160 10^3/UL (140-415); RED CELL DISTRIBUTION WIDTH 20.8 % (11.5-14.5)
[2019-03-22 08:41] LABS: WHITE BLOOD COUNT 9.4 10^3/ul (4.8-10.8)
[2019-03-22 08:45] LABS: POSITIVE DIFF @See below
[2019-03-22] MEDS: HYDROCODONE/APAP (10/325) TAB PO ×2 (09:11→16:13)
[2019-03-22 09:12] LABS: ANION GAP 16 (5-13); BLOOD UREA NITROGEN 64 mg/dl (7-20); CALCIUM 7.7 mg/dl (8.4-10.2); CARBON DIOXIDE 19 mmol/L (21-31); CHLORIDE 103 mmol/L (97-110); GLUCOSE 93 mg/dl (70-220); MAGNESIUM 2.3 mg/dl (1.7-2.5); PHOSPHORUS 4.5 mg/dl (2.5-4.9); POTASSIUM 4.8 mmol/L (3.5-5.1); SODIUM 138 mmol/L (135-144)
[2019-03-22] MEDS: CITRIC ACID/NA CITRATE 30 ML CUP PO ×2 (09:12→23:56)
[2019-03-22] MEDS: FAMOTIDINE 20 MG TAB PO (09:12)
[2019-03-22] MEDS: LACTOBACILLUS RHAMNOSUS CAP PO ×2 (09:12→23:57)
[2019-03-22] MEDS: FERROUS SULFATE (EC) 325 MG TAB PO (09:12)
[2019-03-22] MEDS: ALLOPURINOL 300 MG TAB PO (09:12)
[2019-03-22] MEDS: ENOXAPARIN 30 MG/0.3 ML SYG SC (09:15)
[2019-03-22 09:27] LABS: CREATININE 4.34 mg/dl (0.44-1.00)
[2019-03-22] MEDS: DEXTROSE 5% 1,000 ML IV (13:35)
[2019-03-22] MEDS: IPRATROPIUM (NEB) 0.5 MG/2.5 ML AMP HHN (22:15)
[2019-03-22] MEDS: LEVALBUTEROL (NEB) 1.25 MG/0.5 ML AMP HHN (22:15)
[2019-03-22 22:49] LABS: AADO2 Arterial 305.2 mmHg (7.0-24.0); Allen Test ACCEPTAB; Arterial Base Excess -10.6 mmol/L (-3.0-3); Arterial Blood Gas Oxygen Sat 99.3 mmHG (95.0-100.0); Arterial COHb 0.3 % (0.0-3.0); Arterial Fraction of Oxyhgb 98.7 % (93.0-99.0); Arterial HCO3 17.4 mmol/L (22.0-26.0); Arterial MetHb 0.3 % (0.0-1.5); Arterial pCO2 47.8 mmhg (35-45); MODE MASK - NRB; Site Right Radial
[2019-03-22] MEDS ORDERED: NORepinephrine 8MG/250 ML (PMX 250 ML (23:01)
[2019-03-22] MEDS: NORepinephrine 8MG/250 ML (PMX 250 ML IV (23:16)
[2019-03-22] MEDS ORDERED: VANCOMYCIN IV PER PHARMACY XX (23:30)
[2019-03-22] MEDS: LIDOCAINE 2% (MDV) 20 ML INJ INJ (23:30)
[2019-03-22] MEDS: PHENYLephrine 80 MG in DEXTROSE 5% 242 ML IV (23:37)
[2019-03-22 23:47] LABS: WHITE BLOOD COUNT 11.7 10^3/ul (4.8-10.8)
[2019-03-22 23:47] LABS: ABNORMAL IP MESSAGE 1; BASOPHILS % 0.3 % (0.0-2.0); EOSINOPHILS # 0.1 10^3/ul (0.0-0.5); EOSINOPHILS % 0.5 % (0.0-7.0); HEMATOCRIT 30.4 % (37.0-47.0); HEMOGLOBIN 9.5 g/dl (12.0-16.0); LYMPHOCYTES # 0.5 10^3/ul (0.8-2.9); LYMPHOCYTES % 4.1 % (15.0-51.0); MEAN CORPUSCULAR HEMOGLOBIN 25.1 pg (29.0-33.0); MEAN CORPUSCULAR HGB CONC 31.3 g/dl (32.0-37.0); MEAN CORPUSCULAR VOLUME 80.4 fl (82.0-101.0); MEAN PLATELET VOLUME 10.9 fl (7.4-10.4); MONOCYTE # 0.8 10^3/ul (0.3-0.9); MONOCYTES % 7.1 % (0.0-11.0); NEUTROPHILS % 86.2 % (39.0-77.0); NUCLEATED RED BLOOD CELLS # 0.1 10^3/ul (0.0-0.0); NUCLEATED RED BLOOD CELLS% 0.4 /100WBC (0.0-0.0); PLATELET COUNT 159 10^3/UL (140-415); RED BLOOD COUNT 3.78 10^6/ul (4.20-5.40); RED CELL DISTRIBUTION WIDTH 21.2 % (11.5-14.5)
[2019-03-22 23:50] LABS: ADD MAN DIFF? NO
[2019-03-22 23:54] LABS: POSITIVE DIFF @See below
[2019-03-22] MEDS: DOCUSATE SODIUM 100 MG CAP PO (23:57)
[2019-03-22] MEDS: BUMETANIDE 1 MG INJ IV (23:59)
[2019-03-23] MEDS ORDERED: PIPER-TAZO 3.375 GM IV (PMX) 100 ML IVPB
[2019-03-23 00:06] LABS: ALANINE AMINOTRANSFERASE 19 IU/L (13-69); ALBUMIN 3.4 g/dl (3.3-4.9); ALBUMIN/GLOBULIN RATIO 1.88; ALKALINE PHOSPHATASE 74 IU/L (42-121); ANION GAP 17 (5-13); ASPARTATE AMINO TRANSFERASE 29 IU/L (15-46); BILIRUBIN,INDIRECT 0.4 mg/dl (0-1.1); BILIRUBIN,TOTAL 0.4 mg/dl (0.2-1.3); BLOOD UREA NITROGEN 67 mg/dl (7-20); CALCIUM 7.8 mg/dl (8.4-10.2); CARBON DIOXIDE 20 mmol/L (21-31); CHLORIDE 101 mmol/L (97-110); GLUCOSE 102 mg/dl (70-220); POTASSIUM 4.9 mmol/L (3.5-5.1); SODIUM 138 mmol/L (135-144); TOTAL PROTEIN 5.2 g/dl (6.1-8.1)
[2019-03-23 00:08] LABS: LACTIC ACID 6.3 mmol/L (0.5-2.0)
[2019-03-23 00:15] LABS: CREATININE 4.74 mg/dl (0.44-1.00)
[2019-03-23] MEDS: PIPER-TAZO 2.25 GM (PMX) 50 ML IVPB ×4 (00:21→23:51)
[2019-03-23] MEDS: ALBUMIN HUMAN 25% 100 ML IV ×2 (00:30→01:43)
[2019-03-23] MEDS: VANCOMYCIN HCL 1.5 GM in SOD CHLORIDE 0.9% 250 ML IVPB (03:41)
[2019-03-23 04:57] LABS: ADD MAN DIFF? NO
[2019-03-23 05:05] LABS: WHITE BLOOD COUNT 14.3 10^3/ul (4.8-10.8)
[2019-03-23 05:05] LABS: ABNORMAL IP MESSAGE 1; BASOPHILS % 0.3 % (0.0-2.0); EOSINOPHILS # 0.1 10^3/ul (0.0-0.5); EOSINOPHILS % 0.3 % (0.0-7.0); HEMATOCRIT 28.4 % (37.0-47.0); HEMOGLOBIN 8.8 g/dl (12.0-16.0); LYMPHOCYTES # 0.5 10^3/ul (0.8-2.9); LYMPHOCYTES % 3.8 % (15.0-51.0); MEAN CORPUSCULAR HEMOGLOBIN 25.1 pg (29.0-33.0); MEAN CORPUSCULAR VOLUME 80.9 fl (82.0-101.0); MEAN PLATELET VOLUME 10.6 fl (7.4-10.4); NEUTROPHIL # 12.4 10^3/ul (1.6-7.5); NEUTROPHILS % 86.5 % (39.0-77.0); NUCLEATED RED BLOOD CELLS # 0.1 10^3/ul (0.0-0.0); NUCLEATED RED BLOOD CELLS% 0.5 /100WBC (0.0-0.0); PLATELET COUNT 163 10^3/UL (140-415); RED BLOOD COUNT 3.51 10^6/ul (4.20-5.40); RED CELL DISTRIBUTION WIDTH 21.5 % (11.5-14.5)
[2019-03-23 05:22] LABS: POSITIVE DIFF @See below
[2019-03-23 05:27] LABS: ANION GAP 17 (5-13); BLOOD UREA NITROGEN 68 mg/dl (7-20); CALCIUM 7.5 mg/dl (8.4-10.2); CARBON DIOXIDE 20 mmol/L (21-31); CHLORIDE 102 mmol/L (97-110); GLUCOSE 87 mg/dl (70-220); MAGNESIUM 2.4 mg/dl (1.7-2.5); PHOSPHORUS 5.1 mg/dl (2.5-4.9); SODIUM 139 mmol/L (135-144)
[2019-03-23 05:37] LABS: CREATININE 4.88 mg/dl (0.44-1.00)
[2019-03-23 06:47] LABS: URIC ACID 6.3 mg/dl (3.1-7.9)
[2019-03-23 07:22] LABS: LACTIC ACID 6.4 mmol/L (0.5-2.0)
[2019-03-23 07:44] LABS: AADO2 Arterial 111.3 mmHg (7.0-24.0); Arterial Base Excess -10.9 mmol/L (-3.0-3); Arterial COHb 0.3 % (0.0-3.0); Arterial Fraction of Oxyhgb 96.4 % (93.0-99.0); Arterial MetHb 0.3 % (0.0-1.5); Arterial pCO2 54.4 mmhg (35-45); Blood Gas IEPAP 15/5; MODE MASK - BIPAP; Site Right Brachial
[2019-03-23 08:46] LABS: AADO2 Arterial 100.3 mmHg (7.0-24.0); Allen Test ACCEPTAB; Arterial Base Excess -11.4 mmol/L (-3.0-3); Arterial Blood Gas Oxygen Sat 98.3 mmHG (95.0-100.0); Arterial COHb 0.3 % (0.0-3.0); Arterial Fraction of Oxyhgb 97.5 % (93.0-99.0); Arterial HCO3 15.7 mmol/L (22.0-26.0); Arterial MetHb 0.5 % (0.0-1.5); Arterial pCO2 39.6 mmhg (35-45); Blood Gas IEPAP 15/5; Blood Gas PS 10; MODE MASK - BIPAP; Site Right Radial
[2019-03-23] MEDS: CITRIC ACID/NA CITRATE 30 ML CUP PO ×2 (08:59→20:28)
[2019-03-23] MEDS: ALLOPURINOL 300 MG TAB PO (09:00)
[2019-03-23] MEDS: FERROUS SULFATE (EC) 325 MG TAB PO (09:00)
[2019-03-23] MEDS: LACTOBACILLUS RHAMNOSUS CAP PO ×2 (09:00→20:29)
[2019-03-23] MEDS: FAMOTIDINE 20 MG TAB PO (09:00)
[2019-03-23] MEDS: ENOXAPARIN 30 MG/0.3 ML SYG SC (09:02)
[2019-03-23] MEDS: PHENYLephrine 80 MG in DEXTROSE 5% 242 ML IV ×2 (09:20→22:42)
[2019-03-23] MEDS ORDERED: SODIUM BICARBONATE IN D5W 1,000 ML IV (10:30)
[2019-03-23] MEDS: SODIUM BICARBONATE IN D5W 1,000 ML IV ×2 (10:46→23:51)
[2019-03-23] MEDS: morphine 2 MG INJ IV (16:34)
[2019-03-23] MEDS ORDERED: PENDING SANTYL ORDER FOR WOUND CARE XX (17:30)
[2019-03-23] MEDS: LIDOCAINE 1% (MDV) 20 ML INJ (19:41)
[2019-03-23] MEDS: MIDAZOLAM 1 MG/ML 2 ML INJ (19:42)
[2019-03-23] MEDS: FENTAnyl 50 MCG/ML VIAL (19:42)
[2019-03-23] MEDS: HEPARIN 1000 UNITS/ML 10 ML INJ (19:43)
[2019-03-23] MEDS: LORAZEPAM 2 MG INJ IV (19:59)
[2019-03-23] MEDS: DOCUSATE SODIUM 100 MG CAP PO (20:29)
[2019-03-24 05:17] LABS: ADD MAN DIFF? NO
[2019-03-24 05:21] LABS: WHITE BLOOD COUNT 13.1 10^3/ul (4.8-10.8)
[2019-03-24 05:21] LABS: BASOPHIL # 0.1 10^3/ul (0.0-0.1); BASOPHILS % 0.4 % (0.0-2.0); EOSINOPHILS # 0.1 10^3/ul (0.0-0.5); EOSINOPHILS % 0.8 % (0.0-7.0); HEMATOCRIT 29.1 % (37.0-47.0); HEMOGLOBIN 8.9 g/dl (12.0-16.0); LYMPHOCYTES # 0.7 10^3/ul (0.8-2.9); LYMPHOCYTES % 5.2 % (15.0-51.0); MEAN CORPUSCULAR HEMOGLOBIN 24.8 pg (29.0-33.0); MEAN CORPUSCULAR HGB CONC 30.6 g/dl (32.0-37.0); MEAN CORPUSCULAR VOLUME 81.1 fl (82.0-101.0); MEAN PLATELET VOLUME 11.3 fl (7.4-10.4); MONOCYTE # 0.9 10^3/ul (0.3-0.9); NEUTROPHILS % 84.5 % (39.0-77.0); NUCLEATED RED BLOOD CELLS # 0.1 10^3/ul (0.0-0.0); NUCLEATED RED BLOOD CELLS% 0.5 /100WBC (0.0-0.0); PLATELET COUNT 140 10^3/UL (140-415); RED BLOOD COUNT 3.59 10^6/ul (4.20-5.40); RED CELL DISTRIBUTION WIDTH 21.3 % (11.5-14.5)
[2019-03-24 06:35] LABS: ANION GAP 20 (5-13); BLOOD UREA NITROGEN 72 mg/dl (7-20); CALCIUM 7.1 mg/dl (8.4-10.2); CARBON DIOXIDE 21 mmol/L (21-31); CHLORIDE 98 mmol/L (97-110); GLUCOSE 121 mg/dl (70-220); MAGNESIUM 2.3 mg/dl (1.7-2.5); PHOSPHORUS 4.6 mg/dl (2.5-4.9); POTASSIUM 4.7 mmol/L (3.5-5.1); SODIUM 139 mmol/L (135-144)
[2019-03-24 08:27] LABS: AADO2 Arterial 76.9 mmHg (7.0-24.0); Allen Test ACCEPTAB; Arterial Base Excess -7.5 mmol/L (-3.0-3); Arterial Blood Gas Oxygen Sat 95.8 mmHG (95.0-100.0); Arterial COHb 0.3 % (0.0-3.0); Arterial Fraction of Oxyhgb 95.4 % (93.0-99.0); Arterial HCO3 19.2 mmol/L (22.0-26.0); Arterial MetHb 0.1 % (0.0-1.5); Arterial pCO2 43.4 mmhg (35-45); Blood Gas IEPAP 15/5; Blood Gas PS 10; MODE MASK - BIPAP; Site Right Radial
[2019-03-24] MEDS: CITRIC ACID/NA CITRATE 30 ML CUP PO ×2 (08:57→20:13)
[2019-03-24] MEDS: PIPER-TAZO 2.25 GM (PMX) 50 ML IVPB ×3 (08:57→23:37)
[2019-03-24] MEDS: LACTOBACILLUS RHAMNOSUS CAP PO ×2 (08:57→20:14)
[2019-03-24] MEDS: FAMOTIDINE 20 MG TAB PO (08:58)
[2019-03-24] MEDS: ALLOPURINOL 300 MG TAB PO (08:58)
[2019-03-24] MEDS: FERROUS SULFATE (EC) 325 MG TAB PO (08:58)
[2019-03-24] MEDS: ENOXAPARIN 30 MG/0.3 ML SYG SC (09:18)
[2019-03-24] MEDS: PHENYLephrine 80 MG in DEXTROSE 5% 242 ML IV (10:34)
[2019-03-24] MEDS: SODIUM BICARBONATE IN D5W 1,000 ML IV (14:31)
[2019-03-24] MEDS: DOCUSATE SODIUM 100 MG CAP PO (20:14)
[2019-03-24] MEDS: BALSAM PERU/CASTOR OIL 60 GM TUBE TOP (23:38)
[2019-03-25] MEDS: PHENYLephrine 80 MG in DEXTROSE 5% 242 ML IV ×2 (00:48→19:52)
[2019-03-25] MEDS: SODIUM BICARBONATE IN D5W 1,000 ML IV ×2 (04:36→18:02)
[2019-03-25 04:56] LABS: ADD MAN DIFF? NO
[2019-03-25 05:03] LABS: BASOPHIL # 0.1 10^3/ul (0.0-0.1); BASOPHILS % 0.4 % (0.0-2.0); EOSINOPHILS % 0.3 % (0.0-7.0); HEMATOCRIT 28.8 % (37.0-47.0); HEMOGLOBIN 9.1 g/dl (12.0-16.0); LYMPHOCYTES # 0.6 10^3/ul (0.8-2.9); LYMPHOCYTES % 4.6 % (15.0-51.0); MEAN CORPUSCULAR HGB CONC 31.6 g/dl (32.0-37.0); MEAN CORPUSCULAR VOLUME 79.1 fl (82.0-101.0); MEAN PLATELET VOLUME 10.6 fl (7.4-10.4); MONOCYTE # 0.8 10^3/ul (0.3-0.9); MONOCYTES % 5.7 % (0.0-11.0); NEUTROPHILS % 87.7 % (39.0-77.0); NUCLEATED RED BLOOD CELLS% 0.2 /100WBC (0.0-0.0); PLATELET COUNT 123 10^3/UL (140-415); RED BLOOD COUNT 3.64 10^6/ul (4.20-5.40); RED CELL DISTRIBUTION WIDTH 21.2 % (11.5-14.5)
[2019-03-25 05:03] LABS: WHITE BLOOD COUNT 13.7 10^3/ul (4.8-10.8)
[2019-03-25 05:32] LABS: VANCOMYCIN,RANDOM 13.1 ug/ml
[2019-03-25 05:33] LABS: ANION GAP 20 (5-13); BLOOD UREA NITROGEN 80 mg/dl (7-20); CARBON DIOXIDE 23 mmol/L (21-31); CHLORIDE 97 mmol/L (97-110); GLUCOSE 129 mg/dl (70-220); MAGNESIUM 2.3 mg/dl (1.7-2.5); PHOSPHORUS 4.3 mg/dl (2.5-4.9); POTASSIUM 4.6 mmol/L (3.5-5.1); SODIUM 140 mmol/L (135-144)
[2019-03-25 05:50] LABS: CREATININE 5.75 mg/dl (0.44-1.00)
[2019-03-25 07:37] LABS: AADO2 Arterial 71.8 mmHg (7.0-24.0); Allen Test ACCEPTAB; Arterial Base Excess -4.4 mmol/L (-3.0-3); Arterial COHb 0.3 % (0.0-3.0); Arterial Fraction of Oxyhgb 95.4 % (93.0-99.0); Arterial HCO3 21.3 mmol/L (22.0-26.0); Arterial MetHb 0.3 % (0.0-1.5); Arterial pCO2 41.4 mmhg (35-45); Blood Gas PS 10; MODE MASK - BIPAP; Site Right Radial
[2019-03-25] MEDS: ALLOPURINOL 300 MG TAB PO (08:43)
[2019-03-25] MEDS: LACTOBACILLUS RHAMNOSUS CAP PO ×2 (08:43→20:41)
[2019-03-25] MEDS: FAMOTIDINE 20 MG TAB PO (08:43)
[2019-03-25] MEDS: PIPER-TAZO 2.25 GM (PMX) 50 ML IVPB ×2 (08:43→17:13)
[2019-03-25] MEDS: BALSAM PERU/CASTOR OIL 60 GM TUBE TOP ×2 (08:43→20:44)
[2019-03-25] MEDS: CITRIC ACID/NA CITRATE 30 ML CUP PO ×2 (08:43→20:41)
[2019-03-25] MEDS: FERROUS SULFATE (EC) 325 MG TAB PO (08:43)
[2019-03-25] MEDS: ENOXAPARIN 30 MG/0.3 ML SYG SC (08:48)
[2019-03-25] MEDS: VANCOMYCIN 1 GM 250 ML IVPB (11:20)
[2019-03-25] MEDS: DOCUSATE SODIUM 100 MG CAP PO (20:41)
[2019-03-26] MEDS ORDERED: [UNRECOGNIZED DRUG - OTHER] XX
[2019-03-26] MEDS: PIPER-TAZO 2.25 GM (PMX) 50 ML IVPB ×3 (00:40→17:19)
[2019-03-26] MEDS: SODIUM BICARBONATE IN D5W 1,000 ML IV ×2 (05:22→19:19)
[2019-03-26 05:26] LABS: ADD MAN DIFF? NO
[2019-03-26 05:32] LABS: BASOPHILS % 0.2 % (0.0-2.0); EOSINOPHILS % 0.2 % (0.0-7.0); HEMATOCRIT 29.8 % (37.0-47.0); HEMOGLOBIN 9.3 g/dl (12.0-16.0); LYMPHOCYTES # 0.7 10^3/ul (0.8-2.9); LYMPHOCYTES % 4.1 % (15.0-51.0); MEAN CORPUSCULAR HEMOGLOBIN 24.8 pg (29.0-33.0); MEAN CORPUSCULAR HGB CONC 31.2 g/dl (32.0-37.0); MEAN CORPUSCULAR VOLUME 79.5 fl (82.0-101.0); MEAN PLATELET VOLUME 10.6 fl (7.4-10.4); MONOCYTE # 0.8 10^3/ul (0.3-0.9); MONOCYTES % 4.6 % (0.0-11.0); NEUTROPHIL # 14.4 10^3/ul (1.6-7.5); NEUTROPHILS % 89.4 % (39.0-77.0); NUCLEATED RED BLOOD CELLS # 0.1 10^3/ul (0.0-0.0); NUCLEATED RED BLOOD CELLS% 0.3 /100WBC (0.0-0.0); PLATELET COUNT 125 10^3/UL (140-415); RED BLOOD COUNT 3.75 10^6/ul (4.20-5.40); RED CELL DISTRIBUTION WIDTH 21.4 % (11.5-14.5)
[2019-03-26 05:32] LABS: WHITE BLOOD COUNT 16.2 10^3/ul (4.8-10.8)
[2019-03-26 05:55] LABS: ANION GAP 21 (5-13); BLOOD UREA NITROGEN 91 mg/dl (7-20); CALCIUM 6.6 mg/dl (8.4-10.2); CARBON DIOXIDE 25 mmol/L (21-31); CHLORIDE 96 mmol/L (97-110); GLUCOSE 134 mg/dl (70-220); PHOSPHORUS 4.5 mg/dl (2.5-4.9); POTASSIUM 4.7 mmol/L (3.5-5.1); SODIUM 142 mmol/L (135-144)
[2019-03-26 06:34] LABS: CREATININE 5.91 mg/dl (0.44-1.00); MAGNESIUM 2.4 mg/dl (1.7-2.5)
[2019-03-26] MEDS: LACTOBACILLUS RHAMNOSUS CAP PO ×2 (09:00→20:48)
[2019-03-26] MEDS: ALLOPURINOL 300 MG TAB PO (09:00)
[2019-03-26] MEDS: CITRIC ACID/NA CITRATE 30 ML CUP PO ×2 (09:00→20:48)
[2019-03-26] MEDS: FERROUS SULFATE (EC) 325 MG TAB PO (09:00)
[2019-03-26] MEDS: FAMOTIDINE 20 MG TAB PO (09:00)
[2019-03-26] MEDS: BALSAM PERU/CASTOR OIL 60 GM TUBE TOP ×2 (09:45→21:12)
[2019-03-26] MEDS: ENOXAPARIN 30 MG/0.3 ML SYG SC (09:47)
[2019-03-26] MEDS: PHENYLephrine 80 MG in DEXTROSE 5% 242 ML IV (14:06)
[2019-03-26] MEDS: HEPARIN 1000 UNITS/ML 10 ML INJ CATHETER (20:47)
[2019-03-26] MEDS: DOCUSATE SODIUM 100 MG CAP PO (20:48)
[2019-03-27] MEDS: PIPER-TAZO 2.25 GM (PMX) 50 ML IVPB ×4 (00:23→23:43)
[2019-03-27] MEDS: morphine 2 MG INJ IV ×4 (01:00→20:09)
[2019-03-27] MEDS: PHENYLephrine 80 MG in DEXTROSE 5% 242 ML IV (04:48)
[2019-03-27 04:57] LABS: ADD MAN DIFF? NO
[2019-03-27 05:01] LABS: BASOPHILS % 0.2 % (0.0-2.0); HEMOGLOBIN 9.3 g/dl (12.0-16.0); LYMPHOCYTES # 0.8 10^3/ul (0.8-2.9); LYMPHOCYTES % 4.7 % (15.0-51.0); MEAN CORPUSCULAR HEMOGLOBIN 24.8 pg (29.0-33.0); MEAN PLATELET VOLUME 11.5 fl (7.4-10.4); MONOCYTES % 5.8 % (0.0-11.0); NEUTROPHIL # 14.9 10^3/ul (1.6-7.5); NEUTROPHILS % 87.3 % (39.0-77.0); NUCLEATED RED BLOOD CELLS # 0.1 10^3/ul (0.0-0.0); NUCLEATED RED BLOOD CELLS% 0.5 /100WBC (0.0-0.0); PLATELET COUNT 121 10^3/UL (140-415); RED BLOOD COUNT 3.75 10^6/ul (4.20-5.40); RED CELL DISTRIBUTION WIDTH 21.6 % (11.5-14.5)
[2019-03-27 05:17] LABS: ANION GAP 20 (5-13); BLOOD UREA NITROGEN 70 mg/dl (7-20); CALCIUM 6.9 mg/dl (8.4-10.2); CARBON DIOXIDE 27 mmol/L (21-31); CHLORIDE 95 mmol/L (97-110); GLUCOSE 105 mg/dl (70-220); MAGNESIUM 2.2 mg/dl (1.7-2.5); PHOSPHORUS 4.1 mg/dl (2.5-4.9); POTASSIUM 4.1 mmol/L (3.5-5.1); SODIUM 142 mmol/L (135-144)
[2019-03-27 05:24] LABS: CREATININE 5.05 mg/dl (0.44-1.00)
[2019-03-27] MEDS: DEXTROSE 5%-0.45% NACL 1,000 ML IV ×2 (06:32→19:15)
[2019-03-27] MEDS: BALSAM PERU/CASTOR OIL 60 GM TUBE TOP ×2 (08:34→20:09)
[2019-03-27] MEDS: ENOXAPARIN 30 MG/0.3 ML SYG SC (08:34)
[2019-03-27] MEDS: ALLOPURINOL 300 MG TAB PO (09:00)
[2019-03-27] MEDS: LACTOBACILLUS RHAMNOSUS CAP PO ×2 (09:00→20:11)
[2019-03-27] MEDS: CITRIC ACID/NA CITRATE 30 ML CUP PO ×2 (09:00→20:11)
[2019-03-27] MEDS: FAMOTIDINE 20 MG TAB PO (09:00)
[2019-03-27] MEDS: FERROUS SULFATE (EC) 325 MG TAB PO (09:00)
[2019-03-27] MEDS: ALBUMIN HUMAN 25% 100 ML IV (11:00)
[2019-03-27] MEDS: HEPARIN 1000 UNITS/ML 10 ML INJ CATHETER (13:49)
[2019-03-27] MEDS: DOCUSATE SODIUM 100 MG CAP PO (20:11)
[2019-03-28] MEDS: morphine 2 MG INJ IV ×3 (01:28→12:07)
[2019-03-28 05:01] LABS: AADO2 Arterial 87.7 mmHg (7.0-24.0); Allen Test ACCEPTAB; Arterial Base Excess -1.5 mmol/L (-3.0-3); Arterial Blood Gas Oxygen Sat 94.5 mmHG (95.0-100.0); Arterial COHb 0.5 % (0.0-3.0); Arterial Fraction of Oxyhgb 93.7 % (93.0-99.0); Arterial HCO3 23.8 mmol/L (22.0-26.0); Arterial MetHb 0.3 % (0.0-1.5); Arterial pCO2 42.7 mmhg (35-45); Blood Gas IEPAP 15/5; Blood Gas PS 10; MODE MASK - BIPAP; Site Right Radial
[2019-03-28 05:21] LABS: ADD MAN DIFF? NO
[2019-03-28 05:27] LABS: BASOPHIL # 0.1 10^3/ul (0.0-0.1); BASOPHILS % 0.3 % (0.0-2.0); EOSINOPHILS % 0.1 % (0.0-7.0); HEMATOCRIT 28.4 % (37.0-47.0); HEMOGLOBIN 8.6 g/dl (12.0-16.0); LYMPHOCYTES # 0.8 10^3/ul (0.8-2.9); LYMPHOCYTES % 4.7 % (15.0-51.0); MEAN CORPUSCULAR HEMOGLOBIN 25.1 pg (29.0-33.0); MEAN CORPUSCULAR HGB CONC 30.3 g/dl (32.0-37.0); MEAN PLATELET VOLUME 11.7 fl (7.4-10.4); MONOCYTE # 0.9 10^3/ul (0.3-0.9); MONOCYTES % 5.2 % (0.0-11.0); NEUTROPHIL # 15.2 10^3/ul (1.6-7.5); NEUTROPHILS % 87.8 % (39.0-77.0); NUCLEATED RED BLOOD CELLS # 0.1 10^3/ul (0.0-0.0); NUCLEATED RED BLOOD CELLS% 0.8 /100WBC (0.0-0.0); PLATELET COUNT 105 10^3/UL (140-415); RED BLOOD COUNT 3.42 10^6/ul (4.20-5.40); RED CELL DISTRIBUTION WIDTH 21.7 % (11.5-14.5)
[2019-03-28 05:27] LABS: WHITE BLOOD COUNT 17.3 10^3/ul (4.8-10.8)
[2019-03-28 05:29] LABS: LACTIC ACID 10.7 mmol/L (0.5-2.0)
[2019-03-28 05:51] LABS: ANION GAP 19 (5-13); BLOOD UREA NITROGEN 53 mg/dl (7-20); CALCIUM 6.8 mg/dl (8.4-10.2); CARBON DIOXIDE 23 mmol/L (21-31); CHLORIDE 98 mmol/L (97-110); GLUCOSE 99 mg/dl (70-220); POTASSIUM 4.3 mmol/L (3.5-5.1); SODIUM 140 mmol/L (135-144)
[2019-03-28] MEDS: DEXTROSE 5%-0.45% NACL 1,000 ML IV (06:03)
[2019-03-28] MEDS: PHENYLephrine 80 MG in DEXTROSE 5% 242 ML IV (06:05)
[2019-03-28] MEDS: SOD CHLORIDE 0.9% 500 ML IV (06:52)
[2019-03-28] MEDS: PIPER-TAZO 2.25 GM (PMX) 50 ML IVPB (08:38)
[2019-03-28] MEDS: ONDANSETRON 4 MG INJ IV (08:38)
[2019-03-28] MEDS: FERROUS SULFATE (EC) 325 MG TAB PO (09:00)
[2019-03-28] MEDS: CITRIC ACID/NA CITRATE 30 ML CUP PO (09:00)
[2019-03-28] MEDS: FAMOTIDINE 20 MG TAB PO (09:00)
[2019-03-28] MEDS: ALLOPURINOL 300 MG TAB PO (09:00)
[2019-03-28] MEDS: LACTOBACILLUS RHAMNOSUS CAP PO (09:00)
[2019-03-28] MEDS: BALSAM PERU/CASTOR OIL 60 GM TUBE TOP (12:07)
[2019-03-28] MEDS: ENOXAPARIN 30 MG/0.3 ML SYG SC (12:10)
[2019-03-28] MEDS: VANCOMYCIN 1 GM 250 ML IVPB (13:06)
[2019-03-28] MEDS ORDERED: ATROPINE 1% 5 ML OPH SL (15:30)
[2019-03-28] MEDS ORDERED: ARTIFICIAL TEARS 15 ML OPH BOTH EYES (15:30)
[2019-03-28] MEDS ORDERED: DIMETHICONE STICK TOP (15:30)
[2019-03-28] MEDS: morphine (DRIP) 100 MG/100 ML 100 ML IV (15:52)
== END 2019-03-28 21:00 | disposition expired | DRG 871 ==
LOC: TEL 22:49 → E/R 20:53 → TEL 03-11 12:33 → ICU 03-22 22:47
PROC: 0W993ZX Drainage of Right Pleural Cavity, Percutaneous Approach, Diagnostic (ICD-10-PCS; 2019-03-13 14:30)
PROC: 02HV33Z Insertion of Infusion Device into Superior Vena Cava, Percutaneous Approach (ICD-10-PCS; principal; 2019-03-13 14:51)
PROC: 5A1D70Z Performance of Urinary Filtration, Intermittent, Less than 6 Hours Per Day (ICD-10-PCS; 2019-03-13 14:51)
PROC: 0W993ZX Drainage of Right Pleural Cavity, Percutaneous Approach, Diagnostic (ICD-10-PCS; 2019-03-13 14:51)
PROC: 0W9G3ZX Drainage of Peritoneal Cavity, Percutaneous Approach, Diagnostic (ICD-10-PCS; 2019-03-13 14:51)
PROC: 0JH63XZ Insertion of Tunneled Vascular Access Device into Chest Subcutaneous Tissue and Fascia, Percutaneous Approach (ICD-10-PCS; 2019-03-13 14:51)
PROC: 05HM33Z Insertion of Infusion Device into Right Internal Jugular Vein, Percutaneous Approach (ICD-10-PCS; 2019-03-13 14:51)
DX: A41.9 Sepsis, unspecified organism (principal); J18.9 Pneumonia, unspecified organism; J96.01 Acute respiratory failure with hypoxia; N17.0 Acute kidney failure with tubular necrosis; R65.21 Severe sepsis with septic shock; G92 Toxic encephalopathy; C85.90 Non-Hodgkin lymphoma, unspecified, unspecified site; C81.90 Hodgkin lymphoma, unspecified, unspecified site; J91.0 Malignant pleural effusion; R18.0 Malignant ascites; E87.4 Mixed disorder of acid-base balance; R65.20 Severe sepsis without septic shock; D69.6 Thrombocytopenia, unspecified; I35.0 Nonrheumatic aortic (valve) stenosis; Z95.9 Presence of cardiac and vascular implant and graft, unspecified; E53.8 Deficiency of other specified B group vitamins; F41.9 Anxiety disorder, unspecified; I95.9 Hypotension, unspecified; E83.9 Disorder of mineral metabolism, unspecified; D63.8 Anemia in other chronic diseases classified elsewhere; E87.5 Hyperkalemia; I46.8 Cardiac arrest due to other underlying condition; Z92.21 Personal history of antineoplastic chemotherapy; Z51.5 Encounter for palliative care; Z66 Do not resuscitate
CPT/HCPCS: 32550; 36415; 36556; 36600; 71045; 74176; 76705; 76775; 76942; 80048; 80053; 80202; 81001; 81003; 82040; 82043; 82607; 82746; 82803; 82945; 82962; 83036; 83540; 83605; 83615; 83735; 83880; 84100; 84145; 84155; 84157; 84300; 84478; 84484; 84560; 85025; 85610; 85651; 85730; 86480; 86706; 87040-91; 87070; 87081; 87086; 87102; 87116; 87340; 88104; 88305; 88341; 88342; 89051; 90935; 93005; 93308; 94640; 94660; 94664; 96374; 96375; 97110; 97116; 97161; 97530; 99285-25